=== PATIENT | male | born 1950 | race Caucasian/White ===

== ENCOUNTER 2020-12-05 09:22 | Emergency (ER) | payer MEDICARE, SELFPAY ==
--- NOTE | 2020-12-05 10:20 | PC.NURSE ---
registration states pt was not registered because he phoned in and stated he needed to give blood. pt was then informed quest was closed today.
== END 2020-12-05 09:30 | disposition left against medical advice (07) ==
LOC: EXPBETH 09:26
PROVIDERS: Emergency Provider Nurse Practitioner
DX: Z53.21 Procedure and treatment not carried out due to patient leaving prior to being seen by health care provider (principal)
CPT/HCPCS: 99199